=== PATIENT | female | born 1995 | race Two or more races ===

== ENCOUNTER → 2023-06-13 | Outpatient (CLI) | payer OTHER | LOC: M PLALAB 11:57 | PROVIDERS: ATTEND Advanced Practice Midwife | DX: O02.1 Missed abortion (principal) ==

== ENCOUNTER → 2023-06-23 | Outpatient (CLI) | payer OTHER | LOC: M PLALAB 13:33 | PROVIDERS: ATTEND Advanced Practice Midwife | DX: O02.1 Missed abortion (principal) ==

== ENCOUNTER → 2023-07-15 | Outpatient (CLI) | payer OTHER | LOC: M WHC 07:05 | PROVIDERS: ATTEND Advanced Practice Midwife | DX: Q51.9 Congenital malformation of uterus and cervix, unspecified (principal) ==

== ENCOUNTER → 2023-11-28 | Outpatient (REF) | payer OTHER | LOC: M PLALAB 11:06 | PROVIDERS: ATTEND Obstetrics & Gynecology | DX: Z12.4 Encounter for screening for malignant neoplasm of cervix (principal); Z53.9 Procedure and treatment not carried out, unspecified reason ==

== ENCOUNTER → 2023-11-28 | Outpatient (CLI) | payer OTHER ==
[2023-11-28 15:36] LABS: HEMATOCRIT 40.7 % (36.0-47.0); HEMOGLOBIN 13.5 g/dl (12.0-15.5); MEAN CORPUSCULAR HEMOGLOBIN 31.1 pg (27.0-33.0); MEAN CORPUSCULAR HGB CONC 33.2 g/dl (32.0-36.5); MEAN CORPUSCULAR VOLUME 93.8 fl (80.0-96.0); PLATELET COUNT, AUTOMATED 222 10^3/uL (150-450); RED BLOOD COUNT 4.34 10^6/uL (4.00-5.40); WHITE BLOOD COUNT 5.6 10^3/uL (4.0-10.0)
[2023-11-28 16:10] LABS: FREE T4 1.07 NG/DL (0.89-1.76)
[2023-11-28 16:11] LABS: THYROID STIMULATING HORMONE 1.427 uIU/ML (0.55-4.78)
== END ==
LOC: M PLALAB 11:32
PROVIDERS: ATTEND Obstetrics & Gynecology
DX: Z12.4 Encounter for screening for malignant neoplasm of cervix (principal)
CPT/HCPCS: 36415; 82465; 84439; 84443; 85027; G0123